=== PATIENT | female | born 1960 | race Caucasian/White ===

== ENCOUNTER → 2018-05-27 | Outpatient (CLI) | payer OTHER ==
[~2018-05-27] MED LIST: ASPIR 8181 MG PO; D3 DOTS2000 UNIT PO; LIPITOR 20 MG T20 M1 PO; LOPRESSOR25 PO; PERCOCET 5-3251 EACH PO; PREDNISONE 20 M20 M1 PO; UNICOMPLEX M TA1 TA1 PO
[2018-05-28 02:06] LABS: GLYCOHEMOGLOBIN (HGB A1C) 5.7 % (4.8-5.6)
== END ==
LOC: M.LAB 10:45
PROVIDERS: Nurse Practitioner
DX: R73.09 Other abnormal glucose (principal); G47.30 Sleep apnea, unspecified

== ENCOUNTER → 2018-06-02 | Outpatient (CLI) | payer OTHER | LOC: M.ULTRA 09:00 | DX: M54.2 Cervicalgia (principal); R59.1 Generalized enlarged lymph nodes; Z85.3 Personal history of malignant neoplasm of breast; Z85.818 Personal history of malignant neoplasm of other sites of lip, oral cavity, and pharynx ==

== ENCOUNTER → 2018-09-14 | Outpatient (CLI) | payer OTHER | LOC: M.CT 13:43 | DX: K44.9 Diaphragmatic hernia without obstruction or gangrene (principal); M79.602 Pain in left arm ==

== ENCOUNTER 2019-02-23 15:45 | Emergency (ER) | payer BC, OTHER ==
[~2019-02-23] VITALS: Ht 162.6 cm; Wt 90.7 kg
[2019-02-23] MEDS ORDERED: NORFLEX100 MG PO (17:34)
[2019-02-23 18:00] VITALS: BP 125/58
== END 2019-02-23 18:00 | disposition home or self-care (01) ==
LOC: M.ERS 15:45
DX: S06.0X0A Concussion without loss of consciousness, initial encounter (principal); S16.1XXA Strain of muscle, fascia and tendon at neck level, initial encounter; S00.03XA Contusion of scalp, initial encounter; S50.01XA Contusion of right elbow, initial encounter; S43.402A Unspecified sprain of left shoulder joint, initial encounter; G47.30 Sleep apnea, unspecified; Z90.710 Acquired absence of both cervix and uterus; Z88.5 Allergy status to narcotic agent; V48.0XXA Car driver injured in noncollision transport accident in nontraffic accident, initial encounter; Y93.89 Activity, other specified; Y92.89 Other specified places as the place of occurrence of the external cause; Y99.8 Other external cause status

== ENCOUNTER → 2019-02-25 | Outpatient (CLI) | payer BC, OTHER ==
[~2019-02-25] MED LIST changes: +NORFLEX100 MG PO
== END ==
LOC: M.MRI 11:23
DX: M47.812 Spondylosis without myelopathy or radiculopathy, cervical region (principal); M48.02 Spinal stenosis, cervical region; M25.78 Osteophyte, vertebrae; Z88.5 Allergy status to narcotic agent

== ENCOUNTER → 2020-05-09 | Outpatient (CLI) | payer BC, OTHER | LOC: M.LAB 15:49 | PROVIDERS: ATTEND Internal Medicine Gastroenterology | DX: Z01.812 Encounter for preprocedural laboratory examination (principal); Z11.59 Encounter for screening for other viral diseases; Z86.010 Personal history of colon polyps ==

== ENCOUNTER → 2021-06-05 | Outpatient (CLI) | payer BC, OTHER | LOC: M.CT 10:29 | PROVIDERS: ATTEND Internal Medicine Cardiovascular Disease | DX: Z13.6 Encounter for screening for cardiovascular disorders (principal); I25.10 Atherosclerotic heart disease of native coronary artery without angina pectoris ==

== ENCOUNTER → 2021-07-24 | Outpatient (CLI) | payer BC, OTHER | LOC: M.CT 08:25 | PROVIDERS: ATTEND Family Medicine | DX: R91.1 Solitary pulmonary nodule (principal) ==